=== PATIENT | female | born 1965 | race Caucasian/White ===

== ENCOUNTER 2019-03-29 13:24 | Emergency (ER) | payer MEDICARE, MEDICAID ==
[~2019-03-29] VITALS: Ht 167.6 cm; Wt 89.8 kg
[2019-03-29 19:02] VITALS: BP 135/92
== END 2019-03-29 20:29 | disposition home or self-care (01) ==
LOC: ER 13:24
DX: J45.909 Unspecified asthma, uncomplicated (principal); Z76.0 Encounter for issue of repeat prescription

== ENCOUNTER 2019-09-20 13:36 | Emergency (ER) | payer MEDICARE, MEDICAID ==
[~2019-09-20] VITALS: Ht 170.2 cm; Wt 99.3 kg
[2019-09-20 15:39] VITALS: BP 140/57
== END 2019-09-20 16:35 | disposition home or self-care (01) ==
LOC: ER 13:36
DX: T43.591A Poisoning by other antipsychotics and neuroleptics, accidental (unintentional), initial encounter (principal); J45.909 Unspecified asthma, uncomplicated; Y92.89 Other specified places as the place of occurrence of the external cause